=== PATIENT | female | born 1975 | race African-American/Black ===

== ENCOUNTER 2024-10-19 06:29 | Emergency (ER) | payer MEDICAID, OTHER ==
[~2024-10-19] VITALS: Ht 182.9 cm; Wt 116.0 kg
[2024-10-19 06:35] VITALS: O2SAT 100
[2024-10-19 07:01] VITALS: BP 187/62; PULSE 64; RESP 18; TEMP 36.9; O2SAT 100
[2024-10-19] MEDS ORDERED: LACO50TA2 PO ×2 (07:23→07:25)
== END 2024-10-19 08:34 | disposition home or self-care (01) ==
LOC: ER 06:29
DX: Z76.0 Encounter for issue of repeat prescription (principal); E11.9 Type 2 diabetes mellitus without complications; Z86.59 Personal history of other mental and behavioral disorders
CPT/HCPCS: 99281; A4606

== ENCOUNTER 2024-12-20 20:50 | Emergency (ER) | payer OTHER ==
[~2024-12-20] VITALS: Ht 182.9 cm; Wt 113.0 kg
[~2024-12-20 20:50] MED LIST: LACO50TA2 PO
[2024-12-20 20:57] VITALS: O2SAT 100
[2024-12-20 21:07] VITALS: BP 148/86; PULSE 71; RESP 16; TEMP 36.7; O2SAT 98
== END 2024-12-20 22:22 | disposition left against medical advice (07) ==
LOC: ER 20:50
DX: R56.9 Unspecified convulsions (principal); Z53.21 Procedure and treatment not carried out due to patient leaving prior to being seen by health care provider

== ENCOUNTER 2024-12-26 20:49 | Emergency (ER) | payer SELFPAY ==
[~2024-12-26] VITALS: Ht 182.9 cm; Wt 114.0 kg
[2024-12-26 20:54] VITALS: O2SAT 100
[2024-12-26 20:59] VITALS: TEMP 36.7; O2SAT 100
[2024-12-26] MEDS ORDERED: LACO50TA2 MT (22:21)
[2024-12-26 22:31] VITALS: BP 153/85; PULSE 81; RESP 14
== END 2024-12-26 22:34 | disposition home or self-care (01) ==
LOC: ER 20:49
DX: G40.909 Epilepsy, unspecified, not intractable, without status epilepticus (principal); Z76.0 Encounter for issue of repeat prescription; E11.9 Type 2 diabetes mellitus without complications; Z79.899 Other long term (current) drug therapy
CPT/HCPCS: 99283

== ENCOUNTER 2025-03-02 10:38 | Emergency (ER) | payer BC, OTHER ==
[~2025-03-02] VITALS: Ht 177.8 cm; Wt 93.0 kg
[~2025-03-02 10:38] MED LIST changes: +LACO50TA2 MT; -LACO50TA2 PO
[2025-03-02 10:42] VITALS: O2SAT 99
[2025-03-02 11:50] LABS: CLARITY URINE CLEAR (CLEAR); COLOR URINE YELLOW (YELLOW); GLUCOSE URINE 3+ (NEGATIVE); KETONES URINE TRACE (NEGATIVE); PH URINE 5.5 (4.5-8.0); PROTEIN URINE NEGATIVE (NEGATIVE); SPECIFIC GRAVITY URINE 1.026 (1.005-1.030)
[2025-03-02 11:51] LABS: LEUKOCYTE ESTERASE URINE NEGATIVE (NEGATIVE); NITRITE URINE NEGATIVE (NEGATIVE); OCCULT BLOOD URINE 1+ (NEGATIVE); UROBILINOGEN URINE 0.2 E.U./dL (0.2-1.0)
[2025-03-02 12:07] LABS: BASOPHILS % 0.3 % (0.0-2.0); EOSINOPHILS % 2.2 % (0.0-5.0); HEMATOCRIT. 38.3 % (36.0-48.0); HEMOGLOBIN. 12.5 g/dL (12.0-16.0); LYMPHOCYTES % 27.1 % (20.0-50.0); MEAN PLATELET VOLUME 7.5 fl (7.4-10.4); MONOCYTES % 8.1 % (2.0-8.0); NEUTROPHILS % 62.3 % (40.0-76.0); PLATELET 302 x1000/uL (130-400); RED BLOOD CELL COUNT 4.05 mill/uL (4.2-5.4); RED CELL DISTRIBUTION WIDTH 13.6 % (11.6-14.6)
[2025-03-02 12:19] LABS: SQUAMOUS EPITHELIAL CELL URINE 1+ /lpf (RARE/1+)
[2025-03-02 12:21] LABS: BACTERIA URINE TRACE
[2025-03-02 12:22] LABS: WBC URINE 0-2 /hpf (0-2)
[2025-03-02 12:25] LABS: CREATININE 0.9 mg/dL (0.6-1.0); UREA NITROGEN BLOOD 15 mg/dL (9-23)
[2025-03-02] MEDS ORDERED: SODIUM CHLORIDE 0.9% 1,000 ML IV ONE (12:45)
[2025-03-02] MEDS ORDERED: ONDANSETRON HCL 4MG/2ML INJ IV ONE (12:45)
[2025-03-02 13:17] VITALS: BP 166/96; PULSE 60; RESP 16; TEMP 37.1; O2SAT 99
[2025-03-02 13:18] LABS: INR 1.0
[2025-03-02 13:20] LABS: ASPARTATE AMINOTRANSFERASE 20 IU/L (<34); BILIRUBIN DIRECT < 0.1 mg/dL (<=3.0); BILIRUBIN TOTAL 0.2 mg/dL (0.1-1.0); PROTEIN TOTAL 6.7 g/dL (6.0-8.3)
== END 2025-03-02 13:28 | disposition home or self-care (01) ==
LOC: ER 10:38
DX: E11.65 Type 2 diabetes mellitus with hyperglycemia (principal); R42 Dizziness and giddiness; H92.02 Otalgia, left ear; Z79.899 Other long term (current) drug therapy; Z98.890 Other specified postprocedural states
CPT/HCPCS: 80076; 80048; 81003; 85025; 85610; 36415; 93005; 99284; J7030; Z7610 ×2